=== PATIENT | male | born 1945 | race Caucasian/White ===

== ENCOUNTER 2017-04-12 07:27 | Outpatient (CLI) | payer OTHER ==
[~2017-04-12 07:27] MED LIST: AMOX1TAB5 PO; LIPITOR20 MG; LISINOPRIL20 MG; ULTRACET PO; ZANTAC300 MG PO
== END 2017-04-12 07:31 | disposition home or self-care (01) ==
LOC: SONOGRAMA 07:27
DX: R97.20 Elevated prostate specific antigen [PSA] (principal)

== ENCOUNTER 2017-06-05 06:33 | Outpatient (CLI) | payer OTHER | END 2017-06-05 06:49 | disposition home or self-care (01) | LOC: LAB 06:33 | DX: I10 Essential (primary) hypertension (principal); N41.9 Inflammatory disease of prostate, unspecified; N41.0 Acute prostatitis; E78.89 Other lipoprotein metabolism disorders ==

== ENCOUNTER 2017-06-27 11:48 | Outpatient (CLI) | payer OTHER | END 2017-06-27 11:50 | disposition home or self-care (01) | LOC: LAB 11:48 | DX: I10 Essential (primary) hypertension (principal); E78.89 Other lipoprotein metabolism disorders; N41.9 Inflammatory disease of prostate, unspecified; N41.0 Acute prostatitis; D29.1 Benign neoplasm of prostate; N42.30 Unspecified dysplasia of prostate; J40 Bronchitis, not specified as acute or chronic; J11.1 Influenza due to unidentified influenza virus with other respiratory manifestations ==

== ENCOUNTER 2017-08-28 07:18 | Outpatient (CLI) | payer OTHER | END 2017-08-28 13:46 | disposition home or self-care (01) | LOC: LAB 07:18 | DX: N40.0 Benign prostatic hyperplasia without lower urinary tract symptoms (principal); N41.0 Acute prostatitis; K57.20 Diverticulitis of large intestine with perforation and abscess without bleeding ==

== ENCOUNTER 2017-09-06 16:38 | Outpatient (CLI) | payer OTHER | END 2017-09-06 16:48 | disposition home or self-care (01) | LOC: LAB 16:38 | DX: R97.20 Elevated prostate specific antigen [PSA] (principal) ==

== ENCOUNTER 2017-09-13 06:35 | Outpatient (CLI) | payer OTHER | END 2017-09-13 06:43 | disposition home or self-care (01) | LOC: LAB 06:35 | DX: I10 Essential (primary) hypertension (principal); N41.0 Acute prostatitis; D29.1 Benign neoplasm of prostate; N42.30 Unspecified dysplasia of prostate; E78.89 Other lipoprotein metabolism disorders; N41.8 Other inflammatory diseases of prostate ==

== ENCOUNTER 2017-11-08 07:29 | Outpatient (CLI) | payer OTHER | END 2017-11-08 07:38 | disposition home or self-care (01) | LOC: SONOGRAMA 07:29 | DX: R97.20 Elevated prostate specific antigen [PSA] (principal) ==

== ENCOUNTER → 2018-04-16 06:52 | Outpatient (CLI) | payer OTHER | END | disposition home or self-care (01) | LOC: LAB 06:52 | DX: I10 Essential (primary) hypertension (principal); E78.89 Other lipoprotein metabolism disorders; N41.8 Other inflammatory diseases of prostate; N41.0 Acute prostatitis; D29.1 Benign neoplasm of prostate; N42.30 Unspecified dysplasia of prostate; J40 Bronchitis, not specified as acute or chronic; J11.1 Influenza due to unidentified influenza virus with other respiratory manifestations; J09.X2 Influenza due to identified novel influenza A virus with other respiratory manifestations; Z12.11 Encounter for screening for malignant neoplasm of colon ==

== ENCOUNTER 2018-05-17 06:38 | Outpatient (CLI) | payer OTHER | END 2018-05-17 06:43 | disposition home or self-care (01) | LOC: LAB 06:38 | DX: R97.20 Elevated prostate specific antigen [PSA] (principal); N40.1 Benign prostatic hyperplasia with lower urinary tract symptoms ==

== ENCOUNTER → 2018-07-18 06:14 | Outpatient (CLI) | payer OTHER | END | disposition home or self-care (01) | LOC: LAB 06:14 | DX: E78.89 Other lipoprotein metabolism disorders (principal); I10 Essential (primary) hypertension; N41.0 Acute prostatitis; D29.1 Benign neoplasm of prostate; N42.30 Unspecified dysplasia of prostate; J40 Bronchitis, not specified as acute or chronic; J11.1 Influenza due to unidentified influenza virus with other respiratory manifestations ==

== ENCOUNTER 2018-10-09 06:29 | Outpatient (CLI) | payer OTHER | END 2018-10-09 07:35 | disposition home or self-care (01) | LOC: LAB 06:29 | DX: I10 Essential (primary) hypertension (principal); E78.89 Other lipoprotein metabolism disorders; N41.0 Acute prostatitis; N41.8 Other inflammatory diseases of prostate; N42.30 Unspecified dysplasia of prostate; J40 Bronchitis, not specified as acute or chronic; J11.1 Influenza due to unidentified influenza virus with other respiratory manifestations ==

== ENCOUNTER 2018-11-15 06:23 | Outpatient (CLI) | payer OTHER | END 2018-11-15 06:33 | disposition home or self-care (01) | LOC: LAB 06:23 | DX: R97.20 Elevated prostate specific antigen [PSA] (principal); N41.0 Acute prostatitis; R31.29 Other microscopic hematuria ==

== ENCOUNTER 2019-01-07 06:21 | Outpatient (CLI) | payer OTHER | END 2019-01-07 06:27 | disposition home or self-care (01) | LOC: LAB 06:21 | DX: I10 Essential (primary) hypertension (principal); E78.49 Other hyperlipidemia; N41.8 Other inflammatory diseases of prostate; N41.0 Acute prostatitis; D29.1 Benign neoplasm of prostate; N42.30 Unspecified dysplasia of prostate; J40 Bronchitis, not specified as acute or chronic; J11.1 Influenza due to unidentified influenza virus with other respiratory manifestations; D3A.025 Benign carcinoid tumor of the sigmoid colon ==

== ENCOUNTER 2019-04-09 16:08 | Outpatient (CLI) | payer OTHER | END 2019-04-09 16:15 | disposition home or self-care (01) | LOC: LAB 16:08 | DX: R97.20 Elevated prostate specific antigen [PSA] (principal); N41.0 Acute prostatitis; N30.00 Acute cystitis without hematuria; R31.0 Gross hematuria ==

== ENCOUNTER 2019-05-02 11:26 | Outpatient (CLI) | payer OTHER | END 2019-05-02 11:32 | disposition home or self-care (01) | LOC: LAB 11:26 | DX: E78.89 Other lipoprotein metabolism disorders (principal); I10 Essential (primary) hypertension; N41.8 Other inflammatory diseases of prostate; N41.0 Acute prostatitis; D29.1 Benign neoplasm of prostate; N42.30 Unspecified dysplasia of prostate; J40 Bronchitis, not specified as acute or chronic; J11.1 Influenza due to unidentified influenza virus with other respiratory manifestations; D3A.025 Benign carcinoid tumor of the sigmoid colon ==

== ENCOUNTER 2019-05-03 10:55 | Outpatient (CLI) | payer OTHER | END 2019-05-03 11:03 | disposition home or self-care (01) | LOC: LAB 10:55 | DX: E78.89 Other lipoprotein metabolism disorders (principal); I10 Essential (primary) hypertension; N41.8 Other inflammatory diseases of prostate; N41.0 Acute prostatitis; D29.1 Benign neoplasm of prostate; N42.30 Unspecified dysplasia of prostate; J40 Bronchitis, not specified as acute or chronic; J11.1 Influenza due to unidentified influenza virus with other respiratory manifestations; D3A.025 Benign carcinoid tumor of the sigmoid colon; Z12.13 Encounter for screening for malignant neoplasm of small intestine ==

== ENCOUNTER → 2019-05-31 06:14 | Outpatient (CLI) | payer OTHER | END | disposition home or self-care (01) | LOC: LAB 06:14 | DX: R97.20 Elevated prostate specific antigen [PSA] (principal) ==

== ENCOUNTER → 2019-08-06 06:11 | Outpatient (CLI) | payer OTHER | END | disposition home or self-care (01) | LOC: LAB 06:11 | DX: I10 Essential (primary) hypertension (principal); E78.89 Other lipoprotein metabolism disorders; N41.8 Other inflammatory diseases of prostate; N41.0 Acute prostatitis; N42.30 Unspecified dysplasia of prostate; J40 Bronchitis, not specified as acute or chronic; J11.1 Influenza due to unidentified influenza virus with other respiratory manifestations; D3A.025 Benign carcinoid tumor of the sigmoid colon; Z12.11 Encounter for screening for malignant neoplasm of colon; N40.0 Benign prostatic hyperplasia without lower urinary tract symptoms; R97.20 Elevated prostate specific antigen [PSA] ==

== ENCOUNTER 2019-11-11 06:06 | Outpatient (CLI) | payer OTHER | END 2019-11-11 06:14 | disposition home or self-care (01) | LOC: LAB 06:06 | PROVIDERS: ATTEND Internal Medicine | DX: I10 Essential (primary) hypertension (principal); E78.89 Other lipoprotein metabolism disorders; N41.8 Other inflammatory diseases of prostate; N41.0 Acute prostatitis; D29.1 Benign neoplasm of prostate; J40 Bronchitis, not specified as acute or chronic; J11.1 Influenza due to unidentified influenza virus with other respiratory manifestations; D3A.025 Benign carcinoid tumor of the sigmoid colon ==

== ENCOUNTER → 2020-01-28 06:24 | Outpatient (CLI) | payer OTHER | END | disposition home or self-care (01) | LOC: LAB 06:24 | PROVIDERS: ATTEND Urology | DX: R97.20 Elevated prostate specific antigen [PSA] (principal); R31.1 Benign essential microscopic hematuria ==

== ENCOUNTER 2020-03-05 06:25 | Outpatient (CLI) | payer OTHER | END 2020-03-05 06:41 | disposition home or self-care (01) | LOC: LAB 06:25 | PROVIDERS: ATTEND Internal Medicine | DX: J11.1 Influenza due to unidentified influenza virus with other respiratory manifestations (principal); I10 Essential (primary) hypertension; E78.89 Other lipoprotein metabolism disorders; N41.8 Other inflammatory diseases of prostate; N41.0 Acute prostatitis; D29.1 Benign neoplasm of prostate; N42.30 Unspecified dysplasia of prostate; J40 Bronchitis, not specified as acute or chronic; D3A.025 Benign carcinoid tumor of the sigmoid colon ==

== ENCOUNTER → 2020-06-10 06:28 | Outpatient (CLI) | payer OTHER | END | disposition home or self-care (01) | LOC: LAB 06:28 | PROVIDERS: ATTEND Internal Medicine | DX: I10 Essential (primary) hypertension (principal); E78.89 Other lipoprotein metabolism disorders; N41.8 Other inflammatory diseases of prostate; N41.0 Acute prostatitis; N42.30 Unspecified dysplasia of prostate; J40 Bronchitis, not specified as acute or chronic; J11.1 Influenza due to unidentified influenza virus with other respiratory manifestations; D3A.025 Benign carcinoid tumor of the sigmoid colon ==

== ENCOUNTER 2020-09-02 06:16 | Outpatient (CLI) | payer OTHER | END 2020-09-02 06:22 | disposition home or self-care (01) | LOC: LAB 06:16 | PROVIDERS: ATTEND Urology | DX: R97.20 Elevated prostate specific antigen [PSA] (principal); N30.00 Acute cystitis without hematuria ==

== ENCOUNTER 2020-09-21 06:13 | Outpatient (CLI) | payer OTHER | END 2020-09-21 06:14 | disposition home or self-care (01) | LOC: LAB 06:13 | PROVIDERS: ATTEND Internal Medicine | DX: N41.0 Acute prostatitis (principal); I10 Essential (primary) hypertension; E78.9 Disorder of lipoprotein metabolism, unspecified; N41.9 Inflammatory disease of prostate, unspecified; D29.1 Benign neoplasm of prostate; N42.30 Unspecified dysplasia of prostate; J40 Bronchitis, not specified as acute or chronic; J09.X2 Influenza due to identified novel influenza A virus with other respiratory manifestations; D3A.025 Benign carcinoid tumor of the sigmoid colon; R97.0 Elevated carcinoembryonic antigen [CEA] ==

== ENCOUNTER 2020-12-04 08:00 | Outpatient (CLI) | payer OTHER | END 2020-12-04 08:30 | disposition home or self-care (01) | LOC: PPH VACUNA 08:00 | PROVIDERS: ATTEND Emergency Medicine Pediatric Emergency Medicine | DX: Z23 Encounter for immunization (principal) ==

== ENCOUNTER → 2020-12-28 06:09 | Outpatient (CLI) | payer OTHER | END | disposition home or self-care (01) | LOC: LAB 06:09 | PROVIDERS: ATTEND Internal Medicine | DX: I10 Essential (primary) hypertension (principal); E78.49 Other hyperlipidemia; N41.8 Other inflammatory diseases of prostate; D29.1 Benign neoplasm of prostate; N42.30 Unspecified dysplasia of prostate; J40 Bronchitis, not specified as acute or chronic; J11.1 Influenza due to unidentified influenza virus with other respiratory manifestations; D3A.025 Benign carcinoid tumor of the sigmoid colon ==

== ENCOUNTER 2021-03-08 06:20 | Outpatient (CLI) | payer OTHER | END 2021-03-08 06:21 | disposition home or self-care (01) | LOC: LAB 06:20 | PROVIDERS: ATTEND Urology | DX: R97.20 Elevated prostate specific antigen [PSA] (principal); N30.00 Acute cystitis without hematuria ==

== ENCOUNTER 2021-04-20 08:38 | Outpatient (CLI) | payer OTHER | END 2021-04-20 15:00 | disposition home or self-care (01) | LOC: LAB 08:38 | PROVIDERS: ATTEND Internal Medicine | DX: I10 Essential (primary) hypertension (principal); E78.89 Other lipoprotein metabolism disorders; N41.8 Other inflammatory diseases of prostate; N41.0 Acute prostatitis; D29.1 Benign neoplasm of prostate; N42.30 Unspecified dysplasia of prostate; J40 Bronchitis, not specified as acute or chronic; J11.1 Influenza due to unidentified influenza virus with other respiratory manifestations; J09.X2 Influenza due to identified novel influenza A virus with other respiratory manifestations; D3A.025 Benign carcinoid tumor of the sigmoid colon ==

== ENCOUNTER → 2021-07-09 | Outpatient (CLI) | payer OTHER | END | disposition home or self-care (01) | LOC: PPH VACUNA 08:00 | PROVIDERS: ATTEND Emergency Medicine Pediatric Emergency Medicine | DX: Z23 Encounter for immunization (principal) ==

== ENCOUNTER 2021-07-21 06:32 | Outpatient (CLI) | payer OTHER | END 2021-07-21 06:37 | disposition home or self-care (01) | LOC: LAB 06:32 | PROVIDERS: ATTEND Internal Medicine | DX: J09.X2 Influenza due to identified novel influenza A virus with other respiratory manifestations (principal); I10 Essential (primary) hypertension; E78.9 Disorder of lipoprotein metabolism, unspecified; N41.0 Acute prostatitis; D29.1 Benign neoplasm of prostate; N42.30 Unspecified dysplasia of prostate; J40 Bronchitis, not specified as acute or chronic; E55.9 Vitamin D deficiency, unspecified; D12.2 Benign neoplasm of ascending colon ==

== ENCOUNTER 2021-09-13 16:04 | Outpatient (CLI) | payer OTHER | END 2021-09-13 16:10 | disposition home or self-care (01) | LOC: LAB 16:04 | PROVIDERS: ATTEND Urology | DX: R97.20 Elevated prostate specific antigen [PSA] (principal) ==

== ENCOUNTER 2021-11-17 06:21 | Outpatient (CLI) | payer OTHER | END 2021-11-17 06:22 | disposition home or self-care (01) | LOC: LAB 06:21 | PROVIDERS: ATTEND Internal Medicine | DX: I10 Essential (primary) hypertension (principal); E78.9 Disorder of lipoprotein metabolism, unspecified; N41.9 Inflammatory disease of prostate, unspecified; N41.0 Acute prostatitis; D29.1 Benign neoplasm of prostate; N42.30 Unspecified dysplasia of prostate; J40 Bronchitis, not specified as acute or chronic; J09.X2 Influenza due to identified novel influenza A virus with other respiratory manifestations; D3A.025 Benign carcinoid tumor of the sigmoid colon; E55.9 Vitamin D deficiency, unspecified ==

== ENCOUNTER 2022-01-06 10:29 | Outpatient (CLI) | payer OTHER | END 2022-01-06 10:39 | disposition home or self-care (01) | LOC: PPH VACUNA 10:29 | PROVIDERS: ATTEND Emergency Medicine Pediatric Emergency Medicine | DX: Z23 Encounter for immunization (principal) ==

== ENCOUNTER 2022-03-07 06:12 | Outpatient (CLI) | payer OTHER | END 2022-03-07 06:13 | disposition home or self-care (01) | LOC: LAB 06:12 | PROVIDERS: ATTEND Urology | DX: R97.20 Elevated prostate specific antigen [PSA] (principal); N30.00 Acute cystitis without hematuria ==

== ENCOUNTER 2022-03-17 06:10 | Outpatient (CLI) | payer OTHER | END 2022-03-17 06:12 | disposition home or self-care (01) | LOC: LAB 06:10 | PROVIDERS: ATTEND Internal Medicine | DX: I10 Essential (primary) hypertension (principal); E78.9 Disorder of lipoprotein metabolism, unspecified; N41.9 Inflammatory disease of prostate, unspecified; N41.0 Acute prostatitis; D29.1 Benign neoplasm of prostate; N42.30 Unspecified dysplasia of prostate; J40 Bronchitis, not specified as acute or chronic; J09.X2 Influenza due to identified novel influenza A virus with other respiratory manifestations; D3A.025 Benign carcinoid tumor of the sigmoid colon; E55.9 Vitamin D deficiency, unspecified ==

== ENCOUNTER → 2022-06-06 06:22 | Outpatient (CLI) | payer OTHER | END | disposition home or self-care (01) | LOC: LAB 06:22 | PROVIDERS: ATTEND Internal Medicine | DX: E78.9 Disorder of lipoprotein metabolism, unspecified (principal); I10 Essential (primary) hypertension; N41.9 Inflammatory disease of prostate, unspecified; N41.0 Acute prostatitis; D29.1 Benign neoplasm of prostate; N42.30 Unspecified dysplasia of prostate; J40 Bronchitis, not specified as acute or chronic; J09.X2 Influenza due to identified novel influenza A virus with other respiratory manifestations; D3A.025 Benign carcinoid tumor of the sigmoid colon; E55.9 Vitamin D deficiency, unspecified ==

== ENCOUNTER → 2022-06-27 09:52 | Outpatient (CLI) | payer OTHER | END | disposition home or self-care (01) | LOC: LAB 09:52 | PROVIDERS: ATTEND Internal Medicine Rheumatology | DX: M32.8 Other forms of systemic lupus erythematosus (principal) ==

== ENCOUNTER 2022-08-04 | Outpatient (CLI) | payer OTHER | END 2022-08-04 00:15 | disposition home or self-care (01) | LOC: PPH VACUNA | PROVIDERS: ATTEND Emergency Medicine Pediatric Emergency Medicine | DX: Z23 Encounter for immunization (principal) ==

== ENCOUNTER → 2022-08-31 | Outpatient (CLI) | payer OTHER | END | disposition home or self-care (01) | LOC: LAB 12:41 | PROVIDERS: ATTEND Internal Medicine | DX: E78.9 Disorder of lipoprotein metabolism, unspecified (principal); I10 Essential (primary) hypertension; N41.0 Acute prostatitis; N41.9 Inflammatory disease of prostate, unspecified; D29.1 Benign neoplasm of prostate; N42.30 Unspecified dysplasia of prostate; J40 Bronchitis, not specified as acute or chronic; J09.X2 Influenza due to identified novel influenza A virus with other respiratory manifestations; D3A.025 Benign carcinoid tumor of the sigmoid colon; E55.9 Vitamin D deficiency, unspecified ==

== ENCOUNTER → 2022-12-19 06:23 | Outpatient (CLI) | payer OTHER | END | disposition home or self-care (01) | LOC: LAB 06:23 | PROVIDERS: ATTEND Internal Medicine | DX: E78.9 Disorder of lipoprotein metabolism, unspecified (principal); I10 Essential (primary) hypertension; N41.9 Inflammatory disease of prostate, unspecified; N41.0 Acute prostatitis; D29.1 Benign neoplasm of prostate; N42.30 Unspecified dysplasia of prostate; J40 Bronchitis, not specified as acute or chronic; J09.X2 Influenza due to identified novel influenza A virus with other respiratory manifestations; D3A.025 Benign carcinoid tumor of the sigmoid colon; E55.9 Vitamin D deficiency, unspecified; Z12.11 Encounter for screening for malignant neoplasm of colon ==

== ENCOUNTER → 2023-03-06 06:21 | Outpatient (CLI) | payer OTHER ==
[2023-03-06 08:04] LABS: PH,URINE 5.5 (5.0-8.0); URINE APPEARANCE Clear; URINE BILIRRUBIN Negative (NEGATIVE); URINE BLOOD Trace; URINE COLOR Yellow; URINE GLUCOSE Negative (NEGATIVE); URINE LEUKOCYTE Negative; URINE NITRATE Negative; URINE PROTEIN Negative (NEGATIVE); URINE UROBILINOGEN 0.2 E.U./dl
[2023-03-06 08:05] LABS: URINE BACTERIA 11.3 uL (0.0-1933); URINE EPITHELIAL CELLS 1.5 uL (0.0-38.8); URINE RBC 6.6 uL (0.0-20.8); URINE WBC 4.3 uL (0.0-23.2)
== END | disposition home or self-care (01) ==
LOC: LAB 06:21
PROVIDERS: ATTEND Urology
DX: R97.20 Elevated prostate specific antigen [PSA] (principal); R36.1 Hematospermia

== ENCOUNTER 2023-03-06 07:18 | Outpatient (CLI) | payer OTHER | END 2023-03-06 07:26 | disposition home or self-care (01) | LOC: SONOGRAMA 07:18 | PROVIDERS: ATTEND Urology | DX: R97.20 Elevated prostate specific antigen [PSA] (principal); R31.1 Benign essential microscopic hematuria ==

== ENCOUNTER 2023-04-10 07:14 | Outpatient (CLI) | payer OTHER ==
[2023-04-10 07:56] LABS: PH,URINE 6.5 (5.0-8.0); URINE APPEARANCE Clear; URINE BILIRRUBIN Negative (NEGATIVE); URINE BLOOD Negative; URINE COLOR Yellow; URINE GLUCOSE Negative (NEGATIVE); URINE LEUKOCYTE Negative; URINE NITRATE Negative; URINE PROTEIN Negative (NEGATIVE); URINE UROBILINOGEN 0.2 E.U./dl
[2023-04-10 07:58] LABS: URINE BACTERIA 0 uL (0.0-1933); URINE EPITHELIAL CELLS 0.6 uL (0.0-38.8); URINE WBC 0.7 uL (0.0-23.2)
[2023-04-10 08:02] LABS: ob NEGATIVE (NEGATIVE)
[2023-04-10 08:09] LABS: HEMATOCRIT 42.7 % (39.0-48.0); HEMOGLOBIN 14.7 g/dL (13-16.00); MEAN CELL VOLUME 97.9 fL (80.0-100.00); MEAN CORPUSCULAR HEMOGLOBIN 33.7 pg (27.00-32.0); MEAN CORPUSCULAR HGB CONC 34.4 g/dl (32.0-36.0); PLATELET COUNT 214 K/uL (150-450); RED BLOOD COUNT 4.36 M/uL (4.00-6.00); RED CELL DISTRIBUTION WIDTH 12.7 % (11.5-14.5)
[2023-04-10 08:51] LABS: ALBUMIN 3.7 gm/dL (3.4-5.0); BILIRUBIN TOTAL 0.79 mg/dL (0.3-1.2); CALCIUM 9.1 mg/dL (8.5-10.1); CHOL HDL RATIO 2.6 (0-5.0); CREATININE SERUM 0.91 mg/dL (0.70-1.30); GFR 80.16; GLOBULINA 3.4 G/DL (2.4-3.5); POTASSIUM 4.31 mEq/L (3.5-5.1); T4 TOTAL 10.23 UG/DL (4.5-12.1); TOTAL PROTEIN 7.1 gm/dL (6.4-8.2); TSH 1.16 uIU/mL (0.358-3.74)
[2023-04-10 09:15] LABS: PROSTATIC SPECIFIC ANTIGEN 17.6 NG/ML (0.010-4.00)
== END 2023-04-10 07:15 | disposition home or self-care (01) ==
LOC: LAB 07:14
PROVIDERS: ATTEND Internal Medicine
DX: E78.9 Disorder of lipoprotein metabolism, unspecified (principal); N41.9 Inflammatory disease of prostate, unspecified; N41.0 Acute prostatitis; D29.1 Benign neoplasm of prostate; N42.30 Unspecified dysplasia of prostate; J40 Bronchitis, not specified as acute or chronic; J09.X2 Influenza due to identified novel influenza A virus with other respiratory manifestations; D3A.025 Benign carcinoid tumor of the sigmoid colon; D12.2 Benign neoplasm of ascending colon; E55.9 Vitamin D deficiency, unspecified

== ENCOUNTER 2023-04-12 13:45 | Outpatient (CLI) | payer OTHER | END 2023-04-14 10:41 | disposition home or self-care (01) | LOC: RAD 13:45 | PROVIDERS: ATTEND Internal Medicine | DX: I10 Essential (primary) hypertension (principal); E78.9 Disorder of lipoprotein metabolism, unspecified; N41.9 Inflammatory disease of prostate, unspecified; N41.0 Acute prostatitis; D29.1 Benign neoplasm of prostate; N42.30 Unspecified dysplasia of prostate; J40 Bronchitis, not specified as acute or chronic; J09.X2 Influenza due to identified novel influenza A virus with other respiratory manifestations; D3A.025 Benign carcinoid tumor of the sigmoid colon; D12.2 Benign neoplasm of ascending colon; E55.9 Vitamin D deficiency, unspecified ==

== ENCOUNTER 2024-04-22 09:28 | Outpatient (CLI) | payer OTHER | END 2024-04-22 09:34 | disposition home or self-care (01) | LOC: RAD 09:28 | PROVIDERS: ATTEND Internal Medicine | DX: M16.11 Unilateral primary osteoarthritis, right hip (principal); D3A.025 Benign carcinoid tumor of the sigmoid colon; D12.2 Benign neoplasm of ascending colon; E78.9 Disorder of lipoprotein metabolism, unspecified; N41.9 Inflammatory disease of prostate, unspecified; N41.0 Acute prostatitis; D29.1 Benign neoplasm of prostate; J40 Bronchitis, not specified as acute or chronic; J09.X2 Influenza due to identified novel influenza A virus with other respiratory manifestations; E55.9 Vitamin D deficiency, unspecified; I10 Essential (primary) hypertension ==

== ENCOUNTER 2025-02-19 12:13 | Outpatient (CLI) | payer OTHER | END 2025-02-19 12:19 | disposition home or self-care (01) | LOC: LAB 12:13 | PROVIDERS: ATTEND Urology | DX: R97.20 Elevated prostate specific antigen [PSA] (principal) ==

== ENCOUNTER 2025-03-21 07:02 | Outpatient (CLI) | payer OTHER | END 2025-03-21 07:11 | disposition home or self-care (01) | LOC: SONOGRAMA 07:02 | PROVIDERS: ATTEND Urology | DX: C61 Malignant neoplasm of prostate (principal); N40.1 Benign prostatic hyperplasia with lower urinary tract symptoms; R97.20 Elevated prostate specific antigen [PSA] ==